=== PATIENT | male | born 2000 | race Native Hawaiian/Other Pacific Islander ===

== ENCOUNTER 2021-10-22 13:31 | Emergency (ER) | payer OTHER ==
[~2021-10-22] VITALS: Ht 190.5 cm; Wt 127.0 kg
[2021-10-22 13:53] VITALS: TEMP 98.3
[2021-10-22 14:08] LABS: PLATELET COUNT 244 K/uL (142-355)
[2021-10-22 14:18] LABS: POTASSIUM 3.7 mmol/L (3.6-5.2)
[2021-10-22 14:28] LABS: PARTIAL THROMBOPLASTIN TIME 22.1 SECONDS (24.5-33.6)
[2021-10-22 20:15] VITALS: BP 176/74
== END 2021-10-22 20:15 | disposition short-term general hospital (02) ==
LOC: ED 13:50
PROVIDERS: Emergency Medicine
PROC: 0T9B70Z Drainage of Bladder with Drainage Device, Via Natural or Artificial Opening (ICD-10-PCS; principal; 2021-10-22)
DX: S32.492A Other specified fracture of left acetabulum, initial encounter for closed fracture (principal); S73.005A Unspecified dislocation of left hip, initial encounter; S36.892A Contusion of other intra-abdominal organs, initial encounter; R77.8 Other specified abnormalities of plasma proteins; R00.0 Tachycardia, unspecified; R79.89 Other specified abnormal findings of blood chemistry; S20.212A Contusion of left front wall of thorax, initial encounter; S20.312A Abrasion of left front wall of thorax, initial encounter; S32.511A Fracture of superior rim of right pubis, initial encounter for closed fracture; S32.591A Other specified fracture of right pubis, initial encounter for closed fracture; Z11.52 Encounter for screening for COVID-19; V57.5XXA Driver of pick-up truck or van injured in collision with fixed or stationary object in traffic accident, initial encounter; Y92.89 Other specified places as the place of occurrence of the external cause
CPT/HCPCS: 51702; 80053; 80307; 80320; 82550; 84484; 85027; 85610; 85730; 87635; 90471; 90715; 93005; 96361; 96374; 96375; 96376; 99285; J1170; J2270; J2405; U0003